=== PATIENT | male | born 1990 | race African-American/Black ===

== ENCOUNTER 2017-01-11 16:22 | Emergency (ER) | payer BC ==
[2017-01-11] MEDS ORDERED: LORazepam 2 MG/ML MDV IVPUSH ONE (17:43)
[2017-01-11] MEDS ORDERED: ceFAZolin 2 GM in Premix Bag 1 BAG IV ONE (17:43)
[2017-01-11] MEDS ORDERED: Ketorolac 60 MG/2 ML SDV IM ONE (17:54)
--- NOTE | 2017-01-11 18:36 | EDM.PDOC ---
ED HPI Trauma - General Chief Complaint: Upper Extremity Injury/Pain Stated Complaint: PAIN LT SHOULDER Time Seen by Provider: 01/11/17 16:45 Source: Reports: Patient History Limitations: Reports: No limitations - History of Present Illness INITIAL COMMENTS - FREE TEXT/NARRATIVE: History of present illness: [26-year-old male presenting with complaints of acute onset pain to left shoulder. Patient denies any known recent trauma but indicates that he has had chronic pain with this shoulder before now he can barely tolerate active range of motion.] Review of systems: As per history of present illness and below otherwise all systems reviewed and negative. Past medical history: As per history of present illness and as reviewed below otherwise noncontributory. Surgical history: As per history of present illness and as reviewed below otherwise noncontributory. Social history: No reported history of drug or alcohol abuse. Family history: As per history of present illness and as reviewed below otherwise noncontributory. Physical exam: HEENT: Atraumatic, normocephalic, pupils reactive, negative for conjunctival pallor or scleral icterus, mucous membranes moist, throat clear, neck supple, nontender, trachea midline. Lungs: Clear to auscultation, breath sounds equal bilaterally, chest nontender. Heart: S1S2, regular, negative for clicks, rubs, or JVD. Abdomen: Soft, nondistended, nontender. Negative for masses or hepatosplenomegaly. Negative for costovertebral tenderness. Pelvis: Stable nontender. Genitourinary: Deferred. Rectal: Deferred. Extremities: Atraumatic, negative for cords or calf pain. Neurovascular unremarkable. Left shoulder with small amount of guarding and some crepitus noted on passive range of motion area Neuro: Awake, alert, oriented. Cranial nerves II through XII unremarkable. Cerebellum unremarkable. Motor and sensory unremarkable throughout. Exam nonfocal. Diagnostics: [X. her initial] Therapeutics: [Toradol 60 mg IM] Impression: [Shoulder pain] Plan: [] Definitive disposition and diagnosis as appropriate pending reevaluation and review of above. Allergies/ADRs: Allergies No Known Allergies Allergy (Verified 01/11/17 16:54) Home Medications: Ambulatory Orders . [No Known Home Meds] 12/08/16 [Confirmed 01/11/17] Past Medical History - Past Health History Medical/Surgical History: Denies Medical/Surgical History HEENT History: Reports: None Cardiovascular History: Reports: None Respiratory History: Reports: None Gastrointestinal History: Reports: None Genitourinary History: Reports: None Musculoskeletal History: Reports: Other (see below) Other Musculoskeletal History: back problem 6 yrs. ago. left shoulder injury Neurological History: Reports: None Psychiatric History: Reports: Anxiety, Depression, Other (see below) Other Psychiatric History: insomnia Endocrine/Metabolic History: Reports: None Hematologic History: Reports: None Immunologic History: Reports: None Oncologic (Cancer) History: Reports: None Dermatologic History: Reports: None - Infectious Disease History Infectious Disease History: Reports: None Social & Family History - Family History Family Medical History: Noncontributory - Tobacco Use Smoking Status *Q: Never Smoker - Caffeine Use Caffeine Use: Reports: None - Recreational Drug Use Recreational Drug Use: No Review of Systems - Review of Systems Review Of Systems: See Below (see history of present illness) Trauma Exam - Physical Exam Exam: See Below (See history of present illness) Course - Vital Signs Last Recorded V/S: Last Vital Signs Temp 36.8 C 01/11/17 16:52 Pulse 79 01/11/17 16:52 Resp 16 01/11/17 16:52 BP 133/79 01/11/17 16:52 Pulse Ox 97 01/11/17 16:52 - Orders/Labs/Meds Orders: Active Orders 24 hr Category Date Time Status Shoulder Comp Lt [CR] Stat Exams 01/11/17 17:53 Taken Meds: Medications Discontinued Medications Generic Name Dose Route Start Last Admin Trade Name Freq PRN Reason Stop Dose Admin Ketorolac Tromethamine 60 mg 01/11/17 17:54 Toradol IM 01/11/17 17:55 ONETIME ONE Departure - Departure Time of Disposition: 18:55 Disposition: Home, Self-Care 01 Condition: good Clinical Impression: Acute pain of left shoulder Instructions: Shoulder Pain, [id number]-Jams Forms: ED Department Discharge Additional Instructions: The following information is given to patients seen in the emergency department who are being discharged to home. This information is to outline your options for follow-up care. We provide all patients seen in our emergency department with a follow-up referral. The need for follow-up, as well as the timing and circumstances, are variable depending upon the specifics of your emergency department visit. If you don't have a primary care physician on staff, we will provide you with a referral. We always advise you to contact your personal physician following an emergency department visit to inform them of the circumstance of the visit and for follow-up with them and/or the need for any referrals to a consulting specialist. The emergency department will also refer you to a specialist when appropriate. This referral assures that you have the opportunity for follow-up care with a specialist. All of these measure are taken in an effort to provide you with optimal care, which includes your follow-up. Under all circumstances we always encourage you to contact your private physician who remains a resource for coordinating your care. When calling for follow-up care, please make the office aware that this follow-up is from your recent emergency room visit. If for any reason you are refused follow-up, please contact the [facility] Emergency Department at and asked to speak to the emergency department charge nurse. Followup with PCP in one to 2 days Take medication as directed Return to ED as needed as discussed - My Orders Last 24 Hours: My Active Orders 01/11/17 17:53 Shoulder Comp Lt [CR] Stat - Assessment/Plan Last 24 Hours: My Active Orders 01/11/17 17:53 Shoulder Comp Lt [CR] Stat
[2017-01-11 20:02] VITALS: BP 143/67
--- NOTE | 2017-01-12 15:53 | CR ---
EXAM DATE: 01/11/17 PATIENT'S AGE: 26 Patient: BRYON MARIE Facility: [place], [place] Site Site : 1990 Study: XRay Shoulder [id number]/27/2017 6:28:23 PM Ordering Physician: MAHENDRA Final Report: Indication: Pain Technique: Three views of the left shoulder Comparison: None available Findings: Bones: Alignment is normal. No fractures or bone lesions. Joint spaces: Unremarkable. Soft tissues: Unremarkable. Impression: Negative. Dictated by Donny Chauhan MD @ 01/11/2017 6:37:48 PM Dictated by: Donny Chauhan MD @ 01/11/2017 18:37:56 (Electronic Signature) Report Signed by Proxy and Original Signed Document filed in the Medical Record. MTDGhazala
== END 2017-01-11 20:03 | disposition home or self-care (01) ==
LOC: MW.ED 16:22
DX: M25.512 Pain in left shoulder (principal); F41.9 Anxiety disorder, unspecified; F32.9 Major depressive disorder, single episode, unspecified
CPT/HCPCS: 73030; 96372; 99283; J1885

== ENCOUNTER 2017-06-08 17:18 | Emergency (ER) | payer BC ==
[2017-06-08] MEDS ORDERED: Sodium Chloride 0.9% 1,000 ML IV ONE (17:34)
[2017-06-08] MEDS ORDERED: Sodium Chloride 0.9% 10 ML Syringe FLUSH PRN (17:34)
[2017-06-08] MEDS ORDERED: Sodium Chloride 0.9% 2.5 ML Syringe FLUSH PRN (17:34)
[2017-06-08] MEDS ORDERED: Ondansetron 4 MG/2 ML SDV IVPUSH ONE (17:34)
[2017-06-08] MEDS ORDERED: Famotidine 20 MG/2 ML SDV IVPUSH ONE (17:35)
--- NOTE | 2017-06-08 17:37 | EDM.PDOC ---
ED HPI GENERAL MEDICAL PROBLEM - General Chief Complaint: Abdominal Pain Stated Complaint: PT HAS STOMACH PAINS Time Seen by Provider: 06/08/17 17:35 Source of Information: Reports: Patient History Limitations: Reports: No Limitations - History of Present Illness INITIAL COMMENTS - FREE TEXT/NARRATIVE: HISTORY AND PHYSICAL: []27-year-old black male presenting with abdominal pain mostly left upper quadrant History of Present Illness: [] Patient said he awakened this morning with severe pain had vomiting and diarrhea then went back to sleep When he had enough strength he came to the ER for evaluation Review of Systems: As per history of present illness and below otherwise all systems reviewed and negative. Past medical history: As per history of present illness and as reviewed below otherwise noncontributory. Surgical history: As per history of present illness and as reviewed below otherwise noncontributory. Social history: No reported history of drug or alcohol abuse. Family history: As per history of present illness and as reviewed below otherwise noncontributory. Physical exam: HEENT: Atraumatic, normocehpalic, pupils reactive, negative for conjunctival pallor or scleral icterus, mucous membranes moist, throat clear, neck supple, nontender, trachea midline. Lungs: Clear to auscultation, breath sounds equal bilaterally, chest non tender. Heart: S1S2, regular, negative for clicks, rubs, or JVD. Abdomen: Soft, nondistended, tender. Negative for masses or hepatossplenmegaly. Negative for costovertebral tenderness. No rebound slight guarding Pelvis: Stable nontender. Genitourinary: Deferred. Rectal: Deferred Extremities: Atraumatic, negative for cords or calf pain. Neurovascular unremarkable. Neuro: Awake, alert, oriented. Cranial nerves II through XII unremarkable. Cerebellum unremarkable. Motor and sensory unremarkable throughout. Exam nonfocal. Diagnostics: [CBC CMP amylase lipase urine] Therapeutics: [Normal saline Zofran] Impression: [ gastroenteritis] Plan: []Home and rest Fluids few sips every 20 minutes to keep hydrated well awake Zofran ODT per prescription Note for work today and tomorrow Definitive disposition and diagnosis as appropriate pending reevaluation and review of above. Onset: Today, Sudden Duration: Hour(s):, Getting Worse Location: Reports: Abdomen Quality: Reports: Stabbing Severity: Moderate upper abdomen Pain Score (Numeric/FACES): 8 - Related Data Allergies Allergy/AdvReac Type Severity Reaction Status Date / Time cyclobenzaprine Allergy Abdominal Verified 06/08/17 17:25 Pain Home Meds: Home Meds Hydrocodone/Acetaminophen [Hydrocodon-Acetaminophen 5-325] 1 tab PO DAILY PRN [History] oxyCODONE 1 tab PO DAILY PRN 06/08/17 [History] Past Medical History - Past Health History Medical/Surgical History: Denies Medical/Surgical History HEENT History: Reports: None Cardiovascular History: Reports: None Respiratory History: Reports: None Gastrointestinal History: Reports: None Genitourinary History: Reports: None Musculoskeletal History: Reports: Back Pain, Chronic, Other (See Below) Other Musculoskeletal History: back, shoulder & neck pain after accident Neurological History: Reports: None Psychiatric History: Reports: Anxiety, Depression, Other (See Below) Other Psychiatric History: insomnia Endocrine/Metabolic History: Reports: None Hematologic History: Reports: None Immunologic History: Reports: None Oncologic (Cancer) History: Reports: None Dermatologic History: Reports: None - Infectious Disease History Infectious Disease History: Reports: None Social & Family History - Family History Family Medical History: Noncontributory - Tobacco Use Smoking Status *Q: Never Smoker Second Hand Smoke Exposure: No - Caffeine Use Caffeine Use: Reports: Coffee, Energy Drinks, Soda, Tea - Alcohol Use Days Per Week of Alcohol Use: 1 Number of Drinks Per Day: 3 Total Drinks Per Week: 3 - Recreational Drug Use Recreational Drug Use: Yes Drug Use in Last 12 Months: Yes Recreational Drug Type: Reports: Marijuana/Hashish Recreational Drug Use Frequency: Daily ED ROS GENERAL - Review of Systems Review Of Systems: ROS reveals no pertinent complaints other than HPI. ED EXAM, GI/ABD - Physical Exam Exam: See Below (See dictation) Course - Vital Signs Last Recorded V/S: Last Vital Signs Temp 35.8 C 06/08/17 17:22 Pulse 69 06/08/17 17:22 Resp 16 06/08/17 17:22 BP 118/79 06/08/17 17:22 Pulse Ox 98 06/08/17 17:22 - Orders/Labs/Meds Orders: Active Orders 24 hr Category Date Time Status DRUG SCREEN, URINE [URCHEM] Stat Lab 06/08/17 17:37 Uncollected UA W/MICROSCOPIC [URIN] Stat Lab 06/08/17 17:37 Uncollected Sodium Chloride 0.9% [Saline Flush] Med 06/08/17 17:34 Active 10 ml FLUSH ASDIRECTED PRN Sodium Chloride 0.9% [Saline Flush] Med 06/08/17 17:34 Active 2.5 ml FLUSH ASDIRECTED PRN Saline Lock Insert [OM.PC] Stat Oth 06/08/17 17:34 Ordered Medication Orders Sodium Chloride (Saline Flush) 10 ml FLUSH ASDIRECTED PRN PRN Reason: Keep Vein Open Sodium Chloride (Saline Flush) 2.5 ml FLUSH ASDIRECTED PRN PRN Reason: Keep Vein Open Labs: Laboratory Tests 06/08/17 06/08/17 Range/Units 17:42 17:42 WBC 6.31 (4.0-11.0) K/uL RBC 6.25 H (4.50-5.90) M/uL Hgb 14.3 (13.0-17.0) g/dL Hct 44.2 (38.0-50.0) % MCV 70.7 L (80.0-98.0) fL MCH 22.9 L (27.0-32.0) pg MCHC 32.4 (31.0-37.0) g/dL RDW Std Deviation 38.6 (28.0-62.0) fl RDW Coeff of Crescencio 15 (11.0-15.0) % Plt Count 171 (150-400) K/uL MPV 9.80 (7.40-12.00) fL Neut % (Auto) 56.9 (48.0-80.0) % Lymph % (Auto) 33.1 (16.0-40.0) % [place] % (Auto) 8.7 (0.0-15.0) % Eos % (Auto) 1.0 (0.0-7.0) % Baso % (Auto) 0.3 (0.0-1.5) % Neut # (Auto) 3.6 (1.4-5.7) K/uL Lymph # (Auto) 2.1 (0.6-2.4) K/uL [place] # (Auto) 0.6 (0.0-0.8) K/uL Eos # (Auto) 0.1 (0.0-0.7) K/uL Baso # (Auto) 0.0 (0.0-0.1) K/uL Nucleated RBC % 0.0 /100WBC Nucleated RBCs # 0 K/uL Sodium 141 (136-146) mmol/L Potassium 4.3 (3.5-5.1) mmol/L Chloride 107 (98-110) mmol/L Carbon Dioxide 27 (21-31) mmol/L BUN 10 (6.0-23.0) mg/dL Creatinine 1.2 (0.6-1.5) mg/dL Est Cr Clr Drug Dosing 114.53 mL/min Estimated GFR (MDRD) > 60.0 ml/min Glucose 96 (60-110) mg/dL Calcium 9.8 (8.8-10.8) mg/dL Total Bilirubin 0.5 (0.1-1.5) mg/dL AST 20 (5-40) IU/L ALT 21 (8-54) IU/L Alkaline Phosphatase 55 (40-150) Total Protein 7.6 (6.0-8.0) g/dL Albumin 4.3 (3.5-5.0) g/dL Globulin 3.3 (2.0-3.5) g/dL Albumin/Globulin Ratio 1.3 (1.3-2.8) Meds: Medications Generic Name Dose Route Start Last Admin Trade Name Freq PRN Reason Stop Dose Admin Sodium Chloride 10 ml 06/08/17 17:34 Saline Flush FLUSH ASDIRECTED PRN Keep Vein Open Sodium Chloride 2.5 ml 06/08/17 17:34 Saline Flush FLUSH ASDIRECTED PRN Keep Vein Open Discontinued Medications Generic Name Dose Route Start Last Admin Trade Name Freq PRN Reason Stop Dose Admin Famotidine 20 mg 06/08/17 17:35 06/08/17 18:06 Pepcid IVPUSH 06/08/17 17:36 20 mg ONETIME ONE Administration Sodium Chloride 1,000 mls @ 999 mls/hr 06/08/17 17:34 06/08/17 18:05 Normal Saline IV 06/08/17 18:34 999 mls/hr STAT ONE Administration Ondansetron HCl 4 mg 06/08/17 17:34 06/08/17 18:09 Zofran IVPUSH 06/08/17 17:35 4 mg ONETIME ONE Administration Departure - Departure Time of Disposition: 18:40 Disposition: Home, Self-Care 01 Condition: Good Clinical Impression: Gastroenteritis - Discharge Information Instructions: Viral Gastroenteritis, Adult, [id number] Forms: ED Department Discharge Additional Instructions: The following information is given to patients seen in the emergency department who are being discharged to home. This information is to outline your options for follow-up care. We provide all patients seen in our emergency department with a follow-up referral. The need for follow-up, as well as the timing and circumstances, are variable depending upon the specifics of your emergency department visit. If you don't have a primary care physician on staff, we will provide you with a referral. We always advise you to contact your personal physician following an emergency department visit to inform them of the circumstance of the visit and for follow-up with them and/or the need for any referrals to a consulting specialist. The emergency department will also refer you to a specialist when appropriate. This referral assures that you have the opportunity for followup care with a specialist. All of these measure are taken in an effort to provide you with optimal care, which includes your followup. Under all circumstances we always encourage you to contact your private physician who remains a resource for coordinating your care. When calling for followup care, please make the office aware that this follow-up is from your recent emergency room visit. If for any reason you are refused follow-up, please contact the [facility] emergency department at and asked to speak to the emergency department charge nurse. He has gastroenteritis Prescription for Zofran will be given to help control the nausea Note to be off work today and tomorrow has been written The worsening of symptoms he'll need to return for reevaluation or follow-up with his primary care provider - My Orders Last 24 Hours: My Active Orders 06/08/17 17:34 Sodium Chloride 0.9% [Saline Flush] 10 ml FLUSH ASDIRECTED PRN Sodium Chloride 0.9% [Saline Flush] 2.5 ml FLUSH ASDIRECTED PRN Saline Lock Insert [OM.PC] Stat 06/08/17 17:37 DRUG SCREEN, URINE [URCHEM] Stat UA W/MICROSCOPIC [URIN] Stat - Assessment/Plan Last 24 Hours: My Active Orders 06/08/17 17:34 Sodium Chloride 0.9% [Saline Flush] 10 ml FLUSH ASDIRECTED PRN Sodium Chloride 0.9% [Saline Flush] 2.5 ml FLUSH ASDIRECTED PRN Saline Lock Insert [OM.PC] Stat 06/08/17 17:37 DRUG SCREEN, URINE [URCHEM] Stat UA W/MICROSCOPIC [URIN] Stat
[2017-06-08 18:09] LABS: CHLORIDE,CL 107 mmol/L (98-110); SODIUM,NA 141 mmol/L (136-146)
[2017-06-08 19:01] VITALS: BP 123/74
== END 2017-06-08 18:59 | disposition home or self-care (01) ==
LOC: MW.ED 17:18
DX: K52.9 Noninfective gastroenteritis and colitis, unspecified (principal); Z88.8 Allergy status to other drugs, medicaments and biological substances; Z79.899 Other long term (current) drug therapy
CPT/HCPCS: 36415; 80053; 85025; 96374; 96375; 99284; J2405; J7040; 99282

== ENCOUNTER 2017-09-30 14:59 | Emergency (ER) | payer BC ==
[2017-09-30 16:06] VITALS: BP 129/71
--- NOTE | 2017-09-30 16:13 | EDM.PDOC ---
ED HPI GENERAL MEDICAL PROBLEM - General Chief Complaint: Upper Extremity Injury/Pain Stated Complaint: NUMBNESS IN HANDS Time Seen by Provider: 09/30/17 16:00 Source of Information: Reports: Patient History Limitations: Reports: No Limitations - History of Present Illness INITIAL COMMENTS - FREE TEXT/NARRATIVE: \History of present illness: [27-year-old male comes in complaining of numbness and tingling to hands patient indicates it is worse as the day goes on at his work. Patient also indicates that his leisure time activities requiring repetitive motion as well video games and/or texturing and that his wrist and hands become too painful to be able to do this successfully. Patient indicates that he wakes up at time in the middle the night with pain in his wrist and hands and his hands going to sleep.] Review of systems: As per history of present illness and below otherwise all systems reviewed and negative. Past medical history: As per history of present illness and as reviewed below otherwise noncontributory. Surgical history: As per history of present illness and as reviewed below otherwise noncontributory. Social history: No reported history of drug or alcohol abuse. Family history: As per history of present illness and as reviewed below otherwise noncontributory. Physical exam: HEENT: Atraumatic, normocephalic, pupils reactive, negative for conjunctival pallor or scleral icterus, mucous membranes moist, throat clear, neck supple, nontender, trachea midline. Lungs: Clear to auscultation, breath sounds equal bilaterally, chest nontender. Heart: S1S2, regular, negative for clicks, rubs, or JVD. Abdomen: Soft, nondistended, nontender. Negative for masses or hepatosplenomegaly. Negative for costovertebral tenderness. Pelvis: Stable nontender. Genitourinary: Deferred. Rectal: Deferred. Extremities: Atraumatic, negative for cords or calf pain. Neurovascular unremarkable. Neuro: Awake, alert, oriented. Cranial nerves II through XII unremarkable. Cerebellum unremarkable. Motor and sensory unremarkable throughout. Exam nonfocal. Global assessment is benign save the subjective complaint as noted in the history of present illness Secondary to no history of trauma and description of repetitive motion issues consistent with a carpal tunnel or a de Quervain's tendinitis if not both Diagnostics: [] Therapeutics: [] Impression: [Carpal tunnel versus de Quervain's tendinitis] Plan: [Meloxicam referral to primary care for further diagnostic studies] Definitive disposition and diagnosis as appropriate pending reevaluation and review of above. Right Wrist Pain Score (Numeric/FACES): 8 - Related Data Allergies Allergy/AdvReac Type Severity Reaction Status Date / Time cyclobenzaprine Allergy Abdominal Verified 09/30/17 15:59 Pain Home Meds: Home Meds Hydrocodone/Acetaminophen [Hydrocodon-Acetaminophen 5-325] 1 tab PO DAILY PRN [History] oxyCODONE 1 tab PO DAILY PRN 06/08/17 [History] Past Medical History - Past Health History Medical/Surgical History: Denies Medical/Surgical History HEENT History: Reports: None Cardiovascular History: Reports: None Respiratory History: Reports: None Gastrointestinal History: Reports: None Genitourinary History: Reports: None Musculoskeletal History: Reports: Back Pain, Chronic, Other (See Below) Other Musculoskeletal History: back, shoulder & neck pain after accident Neurological History: Reports: None Psychiatric History: Reports: Anxiety, Depression, Other (See Below) Other Psychiatric History: insomnia Endocrine/Metabolic History: Reports: None Hematologic History: Reports: None Immunologic History: Reports: None Oncologic (Cancer) History: Reports: None Dermatologic History: Reports: None - Infectious Disease History Infectious Disease History: Reports: None Social & Family History - Family History Family Medical History: Noncontributory - Tobacco Use Smoking Status *Q: Never Smoker Second Hand Smoke Exposure: No - Caffeine Use Caffeine Use: Reports: Other - Alcohol Use Days Per Week of Alcohol Use: 1 Number of Drinks Per Day: 3 Total Drinks Per Week: 3 - Recreational Drug Use Recreational Drug Use: Yes Drug Use in Last 12 Months: Yes Recreational Drug Type: Reports: Marijuana/Hashish Recreational Drug Use Frequency: Daily Review of Systems - Review of Systems Review Of Systems: See Below (See history of present illness) ED EXAM, GENERAL - Physical Exam Exam: See Below (See history of present illness) Course - Vital Signs Last Recorded V/S: Last Vital Signs Temp 36.3 C 09/30/17 16:05 Pulse 87 09/30/17 16:05 Resp 18 09/30/17 16:05 BP 129/71 09/30/17 16:05 Pulse Ox 99 09/30/17 16:05 Departure - Departure Time of Disposition: 16:12 Disposition: Home, Self-Care 01 Condition: Good Clinical Impression: Hand pain - Discharge Information Instructions: Carpal Tunnel Syndrome, Hcit-yn-Vite, Tendinitis, [id number] Referrals: PCP,Unknown [Primary Care Provider] - Additional Instructions: The following information is given to patients seen in the emergency department who are being discharged to home. This information is to outline your options for follow-up care. We provide all patients seen in our emergency department with a follow-up referral. The need for follow-up, as well as the timing and circumstances, are variable depending upon the specifics of your emergency department visit. If you don't have a primary care physician on staff, we will provide you with a referral. We always advise you to contact your personal physician following an emergency department visit to inform them of the circumstance of the visit and for follow-up with them and/or the need for any referrals to a consulting specialist. The emergency department will also refer you to a specialist when appropriate. This referral assures that you have the opportunity for follow-up care with a specialist. All of these measure are taken in an effort to provide you with optimal care, which includes your follow-up. Under all circumstances we always encourage you to contact your private physician who remains a resource for coordinating your care. When calling for follow-up care, please make the office aware that this follow-up is from your recent emergency room visit. If for any reason you are refused follow-up, please contact the [facility] Emergency Department at and asked to speak to the emergency department charge nurse. Take medication as directed Follow-up with PCP as discussed for further diagnostic workup such as potential nerve conduction studies Return ED as needed as discussed [facility] [address] [place] [id number]
== END 2017-09-30 16:23 | disposition home or self-care (01) ==
LOC: MW.ED 14:59
DX: M79.642 Pain in left hand (principal); M79.641 Pain in right hand; Z79.899 Other long term (current) drug therapy; Z88.8 Allergy status to other drugs, medicaments and biological substances
CPT/HCPCS: 99282; 99283

== ENCOUNTER 2022-08-16 16:42 | Emergency (ER) | payer MEDICAID ==
[2022-08-16] MEDS ORDERED: Ketorolac 60 MG/2 ML SDV IM ONE (17:04)
[2022-08-16] MEDS ORDERED: Bacitracin Oint 1 GM U/D Packet TOP ONE (17:04)
[2022-08-16] MEDS ORDERED: Diphtheria,Pertussis(Acell),Tetanus Vaccine 0.5 ML Syringe IM ONE (17:04)
[2022-08-16 18:44] VITALS: BP 107/56; PULSE 77
== END 2022-08-16 17:56 | disposition home or self-care (01) ==
LOC: MW.ED 16:42
DX: T23.201A Burn of second degree of right hand, unspecified site, initial encounter (principal); Z88.8 Allergy status to other drugs, medicaments and biological substances; Z88.5 Allergy status to narcotic agent; Z23 Encounter for immunization; X15.0XXA Contact with hot stove (kitchen), initial encounter
CPT/HCPCS: 16020; 90471; 90715; 96372; 99283; J1885; 10140; 99282

== ENCOUNTER 2023-01-14 18:50 | Emergency (ER) | payer MEDICAID | END 2023-01-14 20:19 | disposition left against medical advice (07) | LOC: MW.ED 18:50 | DX: Z53.21 Procedure and treatment not carried out due to patient leaving prior to being seen by health care provider (principal) ==

== ENCOUNTER 2024-06-19 01:34 | Emergency (ER) | payer OTHER, MEDICAID ==
[2024-06-19] MEDS: Sodium Chloride 0.9% 2.5 ML Syringe FLUSH PRN (01:54)
[2024-06-19] MEDS: Sodium Chloride 0.9% 1,000 ML IV ONE (01:54)
[2024-06-19] MEDS: Bacitracin Oint 1 GM U/D Packet TOP ONE (01:55)
[2024-06-19] MEDS: Sodium Chloride 0.9% 10 ML Syringe FLUSH PRN (01:55)
[2024-06-19 02:03] LABS: BASOPHILS ABSOLUTE AUTO 0.03 K/uL (0.00-0.20); BASOPHILS PERCENT AUTO 0.5 % (0.0-1.0); EOSINOPHILS ABSOLUTE AUTO 0.07 K/uL (0.00-0.45); EOSINOPHILS PERCENT AUTO 1.1 % (0.0-6.0); HEMATOCRIT 44.4 % (42.0-52.0); HEMOGLOBIN 14.2 g/dL (14.0-18.0); IMMATURE GRAN ABSOLUTE AUTO 0.01 K/uL (0.00-0.05); IMMATURE GRAN PERCENT AUTO 0.2 % (0.0-0.4); LYMPHOCYTES ABSOLUTE AUTO 3.33 K/uL (1.00-4.80); LYMPHOCYTES PERCENT AUTO 51.9 % (24.0-44.0); MEAN CORPUSCULAR HEMOGLOBIN 22.7 pg (28.0-32.0); MEAN PLATELET VOLUME 10.5 fL (9.4-12.4); MONOCYTES ABSOLUTE AUTO 0.67 K/uL (0.00-0.80); MONOCYTES PERCENT AUTO 10.4 % (0.0-8.0); NEUTROPHILS ABSOLUTE AUTO 2.31 K/uL (1.80-7.70); NEUTROPHILS PERCENT AUTO 35.9 % (41.0-71.0); PLATELET COUNT,PLT 219 K/uL (150-400); RED BLOOD CELL COUNT 6.25 M/uL (4.52-5.90); WHITE BLOOD CELL COUNT,WBC 6.42 K/uL (3.9-11.3)
[2024-06-19 02:08] LABS: CALCIUM 8.9 mg/dL (8.5-10.1); CARBON DIOXIDE,CO2 25.3 mmol/L (21.0-32.0); CREATININE 1.2 mg/dL (0.8-1.3); EST CRCL DRUG DOSING (CG) 107.5 mL/min; POTASSIUM,K 3.6 mmol/L (3.5-5.1)
[2024-06-19 02:56] VITALS: BP 133/94; PULSE 68
== END 2024-06-19 02:50 ==
LOC: MW.ED 01:34
DX: T22.212A Burn of second degree of left forearm, initial encounter (principal); S80.212A Abrasion, left knee, initial encounter; Z88.5 Allergy status to narcotic agent; Z88.8 Allergy status to other drugs, medicaments and biological substances; V47.5XXA Car driver injured in collision with fixed or stationary object in traffic accident, initial encounter
CPT/HCPCS: 36415; 80048; 80307; 85025; 99284; J3490; J7030; 99283